=== PATIENT | female | born 1975 | race Caucasian/White ===

== ENCOUNTER 2018-07-23 15:23 | Observation (INO) ==
--- NOTE | 2018-07-23 16:12 | ED ---
HPI General Chief Complaint: Chest Pain Stated Complaint: chest pressure Time Seen by Provider: 07/23/18 15:47 Source: patient Mode of arrival: ambulatory Limitations: no limitations History of Present Illness HPI narrative: Patient is a 42-year-old female with no past medical history, presents to the emergency room with complaints of chest pain. Patient reports that for the past week and a half, she has been having substernal chest pain. Patient reports that the pain feels like a squeezing sensation to her chest. Reports that sometimes it feels like there is something sitting on her chest. Patient reports that symptoms began a week and half ago while at rest, reports that nothing makes symptoms better or worse. Patient reports that symptoms were exacerbated today, reports that she felt diaphoretic in her hands so she figured she should come to the ER for evaluation. Patient also endorses that she does feel short of breath or chest pain. Patient denies any nausea or vomiting with her symptoms, no history of coronary artery disease, hypertension , hyperlipidemia or diabetes. Patient is a non-smoker, she does follow-up with a primary care doctor. Denies any use of drugs. Related Data Home Medications Medication Instructions Recorded Confirmed No Known Home Medications 07/23/18 07/23/18 Allergies Allergy/AdvReac Type Severity Reaction Status Date / Time diatrizoate meglumine Allergy Severe Hives Verified 07/23/18 15:37 gadobenic acid Allergy Severe Hives Verified 07/23/18 15:37 gadodiamide Allergy Severe Hives Verified 07/23/18 15:37 gadoteridol Allergy Severe Hives Verified 07/23/18 15:37 iodixanol Allergy Severe Hives Verified 07/23/18 15:37 iohexol Allergy Severe Hives Verified 07/23/18 15:37 Review of Systems ROS: all other systems reviewed are negative [facility] Medical History Medical History H/O: hysterectomy (Acute) POTS (postural orthostatic tachycardia syndrome) (Acute) Surgical History Surgical History History of cranial surgery (Acute) Hx of breast augmentation (Acute) Social History Social History Substance History: No History of Abuse Second Hand Smoke Exposure: No Smoking Status: Never smoker How Often Do You Have a Drink Containing Alcohol: Never Recent Travel in [facility] within the Last 8 Weeks: No Recent Out of Country Travel within the Last 8 Weeks: No Immunization History Tetanus Immunization: <5 Years Exam Narrative Exam Narrative: GENERAL: Mild distress SKIN: Focused skin assessment warm/dry. HEAD: Atraumatic. Normocephalic. EYES: Pupils equal and round. No scleral icterus. No injection or drainage. ENT: No nasal bleeding or discharge. Mucous membranes pink and moist. NECK: Trachea midline. No JVD. CARDIOVASCULAR: Regular rate and rhythm. No murmur appreciated. RESPIRATORY: No accessory muscle use. Clear to auscultation. Breath sounds equal bilaterally. GASTROINTESTINAL: Abdomen soft, non-tender, nondistended. Hepatic and splenic margins not palpable. MUSCULOSKELETAL: No obvious deformities. No clubbing. No cyanosis. No edema. NEUROLOGICAL: Awake and alert. No obvious cranial nerve deficits. Motor grossly within normal limits. Normal speech. PSYCHIATRIC: Appropriate mood and affect; insight and judgment normal. Course Initial Documented Vital Signs Temperature 98.1 F 07/23/18 15:37 Pulse Rate 111 H 07/23/18 15:37 Respiratory Rate 18 07/23/18 15:37 Blood Pressure 144/85 H 07/23/18 15:37 Pulse Oximetry 100 07/23/18 15:37 Last Documented Vital Signs Temperature 98.1 F 07/23/18 15:37 Pulse Rate 95 H 07/23/18 17:39 Respiratory Rate 16 07/23/18 17:39 Blood Pressure 112/65 07/23/18 17:39 Pulse Oximetry 99 07/23/18 17:39 Medical Decision Making [facility] Narrative Medical decision making narrative: During the course of the patients emergency department visit, the patients history, examination, and differential diagnosis were reviewed with the patient. The patient was placed on a monitor and storage bin tender with oximetry and frequent blood pressure monitoring. The patient had an IV access obtained and blood work sent for analysis. The patient was initially provided aspirin as well as SL nitro. Patient's chest pain is concerning - plan for a cardiac workup The patients laboratory studies were reviewed and remarkable for: CBC: wnl BMP: wnl Trop x 1: less than 0.02 xray of chest: no acute findings given her st seg depressions on her ekg - will obs for serial trops in the center Case reviewed with Dr. Carvalho who accepts pt to service for obs to the cp unit Medical Screen Exam Complete: Yes Emergency Medical Condition: Yes Differential Diagnosis Differential Diagnosis: ACS, Arrythmia, PE, electrolyte abnormality, anxiety reaction Medical Records Medical records reviewed: Yes I reviewed the patient's medical records. Lab Data Lab results reviewed: Yes I reviewed the patient's lab results. Result diagrams: 07/23/18 16:08 07/23/18 16:08 Lab Results 07/23/18 07/23/18 07/23/18 Range/Units 16:08 16:08 16:08 CBC w Diff Auto diff final WBC 5.9 (4.0-11.0) th/mm3 RBC 4.24 (4.00-5.30) mil/mm3 Hgb 13.3 (11.6-15.3) gm/dL Hct 38.9 (35.0-46.0) % MCV 91.8 (80.0-100.0) fL MCH 31.3 (27.0-34.0) pg MCHC 34.1 (32.0-36.0) % RDW 11.7 (11.6-17.2) % Plt Count 244 (150-450) th/mm3 MPV 8.6 (7.0-11.0) fL Neut % (Auto) 54.1 (16.0-70.0) % Lymph % (Auto) 33.3 (9.0-44.0) % Crane % (Auto) 10.9 H (0.0-8.0) % Eos % (Auto) 1.1 (0.0-4.0) % Baso % (Auto) 0.6 (0.0-2.0) % Neut # (Auto) 3.2 (1.8-7.7) th/mm3 Lymph # (Auto) 2.0 (1.0-4.8) th/mm3 Crane # (Auto) 0.6 (0.0-0.9) th/mm3 Eos # (Auto) 0.1 (0.0-0.4) th/mm3 Baso # (Auto) 0.0 (0.0-0.2) th/mm3 WBC Differential . Differential Comment . PT 10.2 (9.8-11.6) sec INR 1.0 Ratio APTT 26.3 (24.3-30.1) sec D-Dimer Quant (PE/DVT) 0.22 (0.00-0.50) mg/L FEU Sodium 141 (136-145) meq/L Potassium 3.8 (3.5-5.1) meq/L Chloride 105 (98-107) meq/L Carbon Dioxide 27.8 (21.0-32.0) meq/L Anion Gap 8 (5-15) meq/L BUN 13 (7-18) mg/dL Creatinine 0.80 (0.50-1.00) mg/dL Estimated GFR 79 L (>89) mL/min Random Glucose 94 (74-106) mg/dL Calcium 8.9 (8.5-10.1) mg/dL Total Bilirubin 0.3 (0.2-1.0) mg/dL AST 16 (15-37) U/L ALT 22 (10-53) U/L Alkaline Phosphatase 61 (45-117) U/L Total Creatine Kinase 46 (26-192) U/L Troponin I Less than 0.02 L (0.02-0.05) ng/mL B-Natriuretic Peptide (0-100) pg/mL Total Protein 7.7 (6.4-8.2) g/dL Albumin 3.9 (3.4-5.0) g/dL Lipase 120 (73-393) U/L 07/23/18 Range/Units 16:08 CBC w Diff WBC (4.0-11.0) th/mm3 RBC (4.00-5.30) mil/mm3 Hgb (11.6-15.3) gm/dL Hct (35.0-46.0) % MCV (80.0-100.0) fL MCH (27.0-34.0) pg MCHC (32.0-36.0) % RDW (11.6-17.2) % Plt Count (150-450) th/mm3 MPV (7.0-11.0) fL Neut % (Auto) (16.0-70.0) % Lymph % (Auto) (9.0-44.0) % Crane % (Auto) (0.0-8.0) % Eos % (Auto) (0.0-4.0) % Baso % (Auto) (0.0-2.0) % Neut # (Auto) (1.8-7.7) th/mm3 Lymph # (Auto) (1.0-4.8) th/mm3 Crane # (Auto) (0.0-0.9) th/mm3 Eos # (Auto) (0.0-0.4) th/mm3 Baso # (Auto) (0.0-0.2) th/mm3 WBC Differential Differential Comment PT (9.8-11.6) sec INR Ratio APTT (24.3-30.1) sec D-Dimer Quant (PE/DVT) (0.00-0.50) mg/L FEU Sodium (136-145) meq/L Potassium (3.5-5.1) meq/L Chloride (98-107) meq/L Carbon Dioxide (21.0-32.0) meq/L Anion Gap (5-15) meq/L BUN (7-18) mg/dL Creatinine (0.50-1.00) mg/dL Estimated GFR (>89) mL/min Random Glucose (74-106) mg/dL Calcium (8.5-10.1) mg/dL Total Bilirubin (0.2-1.0) mg/dL AST (15-37) U/L ALT (10-53) U/L Alkaline Phosphatase (45-117) U/L Total Creatine Kinase (26-192) U/L Troponin I (0.02-0.05) ng/mL B-Natriuretic Peptide 14 (0-100) pg/mL Total Protein (6.4-8.2) g/dL Albumin (3.4-5.0) g/dL Lipase (73-393) U/L Imaging Data Attestation: I personally reviewed and interpreted this imaging study as follows : Radiologist's impression: Chest X-Ray 07/23/18 15:58 CONCLUSION: Negative for acute process ECG Data EKG Prior to Arrival: No Attestation: I personally reviewed and interpreted this ECG as follows: Prior ECG tracings: available for review Interpretation: EKG at 1534: NSR at 92bpm, qt/qtc: 343/393, st seg depression II , III, aVF, V3-V6 there are similar st seg changes from 10/04/12 - they are more pronounced today Discharge Plan Discharge Disposition Patient Disposition: 30 Still Patient Discharge Condition Condition: Stable Discharge Details Diagnosis: Chest pain Physicians Team ED Provider: Marylu Bautista Primary Care Provider: Itz Matute Rxs /Orders / Referrals /Forms Prescriptions: No Action No Known Home Medications RF: 0 Discharge Instructions Patient Printed Instructions: Chest Pain (ED) Status ED Status: With Doctor
[2018-07-23 16:20] LABS: Baso % (Auto) 0.6 % (0.0-2.0); Eos # (Auto) 0.1 th/mm3 (0.0-0.4); Eos % (Auto) 1.1 % (0.0-4.0); Hematocrit 38.9 % (35.0-46.0); Hemoglobin 13.3 gm/dL (11.6-15.3); Lymph % (Auto) 33.3 % (9.0-44.0); Mean Corpuscular HGB Conc 34.1 % (32.0-36.0); Mean Corpuscular Hemoglobin 31.3 pg (27.0-34.0); Mean Corpuscular Volume 91.8 fL (80.0-100.0); Mean Platelet Volume 8.6 fL (7.0-11.0); Mono # (Auto) 0.6 th/mm3 (0.0-0.9); Mono % (Auto) 10.9 % (0.0-8.0); Neut # (Auto) 3.2 th/mm3 (1.8-7.7); Neut % (Auto) 54.1 % (16.0-70.0); Platelet Count 244 th/mm3 (150-450); Red Blood Count 4.24 mil/mm3 (4.00-5.30); Red Cell Distribution Width 11.7 % (11.6-17.2); White Blood Count 5.9 th/mm3 (4.0-11.0)
[2018-07-23 16:36] LABS: Chloride 105 meq/L (98-107); Potassium 3.8 meq/L (3.5-5.1); Sodium 141 meq/L (136-145)
[2018-07-23 16:40] LABS: Albumin 3.9 g/dL (3.4-5.0); Calcium 8.9 mg/dL (8.5-10.1); Lipase 120 U/L (73-393)
[2018-07-23 16:41] LABS: Anion Gap 8 meq/L (5-15); Blood Urea Nitrogen 13 mg/dL (7-18); Carbon Dioxide 27.8 meq/L (21.0-32.0); Glucose,Random 94 mg/dL (74-106)
[2018-07-23 16:43] LABS: Alanine Aminotransferase 22 U/L (10-53); Aspartate Aminotransferase 16 U/L (15-37); Glomerular Filtration Rate 79 mL/min (>89)
[2018-07-23 16:45] LABS: Activated Partial Thrombo Time 26.3 sec (24.3-30.1); Prothrombin Time 10.2 sec (9.8-11.6); Total Protein 7.7 g/dL (6.4-8.2)
[2018-07-23 16:46] LABS: Alkaline Phosphatase 61 U/L (45-117)
[2018-07-23 16:48] LABS: D-Dimer 0.22 mg/L FEU (0.00-0.50)
--- NOTE | 2018-07-23 16:56 | XR ---
EXAM DATE: 07/23/2018 3:58 PM EDT AGE/SEX: 42 years / Female INDICATIONS: Chest pain off and on for over 1 week CLINICAL DATA: This is the patient's initial encounter. Patient reports that signs and symptoms have been present for 1 week and indicates a pain score of 4/10. MEDICAL/SURGICAL HISTORY: None. None. COMPARISON: [facility] [place]ST SING[place] AP, 10/04/2012. . FINDINGS: A single AP view of the chest demonstrates the lungs to be symmetrically aerated without evidence of mass, infiltrate or effusion. The cardiomediastinal contours are unremarkable. Osseous structures a re intact. CONCLUSION: Negative for acute process Electronically signed by: Randy Newman MD 07/23/2018 4:54 PM EDT
[2018-07-23 17:12] LABS: Creatine Kinase 46 U/L (26-192)
[2018-07-23] MEDS ORDERED: Acetaminophen 500 MG Tablet PO PRN (18:31)
[2018-07-23] MEDS ORDERED: Morphine Inj 4 MG/ML Vial IV.PUSH PRN (18:31)
[2018-07-23 20:41] LABS: Creatine Kinase 38 U/L (26-192)
[2018-07-23 22:30] LABS: Creatine Kinase 39 U/L (26-192)
[2018-07-23] MEDS: Sod Chloride 0.9% Inj 1,000 ML IV.CONT SCH (23:16)
--- NOTE | 2018-07-24 07:24 | P.HP ---
History of Present Illness Primary Care Physician: Itz Matute Chief Complaint: Chest pain History of Present Illness: 42-year-old female with no chronic medical illnesses who presented to the hospital for evaluation of chest pain. Patient indicates that she been experiencing what she describes as a chest tightness for the last 1-1/2 weeks. She states that she gets associated shortness of breath whenever she exerts herself. There is one episode of dizziness and nausea. Patient states that the pain remains constant and yesterday it got worse to where she describes it as someone was sitting on her chest. Because of worsening of her discomfort she came to the emergency department for evaluation. Patient denies any radiation to the neck, back, shoulder, arm. She denies any diaphoresis. Patient states that she had a cardiac workup in the past because of arrhythmia and was told that she had postural changes. Patient never had cardiac workup or any ischemia. Patient had unremarkable workup emergency department and recommended evaluation in the hospital. - Diagnosis (1) Chest pain Review of Systems All other systems reviewed negative except as stated in HPI Cardiovascular: Reports chest pain Respiratory: Reports shortness of breath with activity Gastrointestinal: Reports nausea Neurologic: Reports dizziness PMFSH - History History Provided By: Patient - Medical History Medical History: Medical History (Last Reviewed 07/24/18 @ 07:22 by BELKIS Dia) POTS (postural orthostatic tachycardia syndrome) - Surgical History Surgical History: Surgical History (Last Updated 07/24/18 @ 07:21 by BELKIS Dia) H/O: hysterectomy History of cranial surgery Hx of breast augmentation - Family History Family History: Family History (Last Updated 07/24/18 @ 07:22 by BELKIS Dia) Mother History of cancer Sister History of cancer Grandparent History of heart disease Aunt History of heart disease - Tobacco History Second Hand Smoke Exposure: No Tobacco Use In Past 30 Days: No Smoking Status: Never smoker - Alcohol History How Often Do You Have a Drink Containing Alcohol: Never - Substance Use History Substance History: No History of Abuse - Travel History Recent Travel in the [place] Within the Last 8 Weeks: No Recent Travel Out of the Country Within the Last 8 Weeks: No - Immunization History Tetanus Immunization: <5 Years Medications and Allergies Active Medications: Active Medications Acetaminophen (Tylenol) 500 mg PO Q4H PRN PRN Reason: HEADACHE Hydrocodone Bitart/Acetaminophen ([place] 7.5/325) 1 tab PO Q4H PRN PRN Reason: PAIN SCALE 1 TO 7 Aspirin (Aspirin) 325 mg PO DAILY [facility] Sodium Chloride (Ns Inj) 1,000 mls @ 100 mls/hr IV.CONT .Q10H [facility] Last Infusion: 07/24/18 04:31 Dose: 100 mls/hr Morphine Sulfate (Morphine Inj) 2 mg IV.PUSH Q4H PRN PRN Reason: PAIN SCALE 8 TO 10 Nitroglycerin (Nitrostat Sl) 0.4 mg SL Q5M PRN PRN Reason: CHEST PAIN Sodium Chloride (Ns Flush) 2 ml IV.FLUSH BID [facility] Last Admin: 07/23/18 23:17 Dose: 2 ml Sodium Chloride (Ns Flush) 2 ml IV.FLUSH PRN PRN PRN Reason: FLUSH AFTER USING IV ACCESS Allergies Allergy/AdvReac Type Severity Reaction Status Date / Time diatrizoate meglumine Allergy Severe Hives Verified 07/23/18 15:37 gadobenic acid Allergy Severe Hives Verified 07/23/18 15:37 gadodiamide Allergy Severe Hives Verified 07/23/18 15:37 gadoteridol Allergy Severe Hives Verified 07/23/18 15:37 iodixanol Allergy Severe Hives Verified 07/23/18 15:37 iohexol Allergy Severe Hives Verified 07/23/18 15:37 Home Medications Medication Instructions Recorded Confirmed Type No Known Home Medications 07/23/18 07/23/18 History Exam Vital signs: Vital Signs 07/23/18 15:37 07/23/18 15:58 07/23/18 16:19 Temperature 98.1 F Pulse Rate 111 H 93 H 93 H Respiratory Rate 18 16 Blood Pressure 144/85 H 131/78 Pulse Oximetry 100 100 100 07/23/18 16:22 07/23/18 16:29 07/23/18 16:33 Temperature Pulse Rate 88 84 74 Respiratory Rate 16 16 16 Blood Pressure 131/72 118/75 108/68 Pulse Oximetry 99 100 100 07/23/18 16:39 07/23/18 17:39 07/23/18 18:39 Temperature Pulse Rate 80 95 H 79 Respiratory Rate 16 16 18 Blood Pressure 114/63 112/65 133/68 Pulse Oximetry 99 99 100 07/23/18 19:39 07/23/18 20:00 07/23/18 21:20 Temperature 98.2 F Pulse Rate 87 68 70 Respiratory Rate 16 16 18 Blood Pressure 126/69 115/70 108/68 Pulse Oximetry 100 97 98 07/23/18 22:48 07/24/18 00:00 07/24/18 01:35 Temperature 98.2 F Pulse Rate 75 68 Respiratory Rate 16 Blood Pressure 115/70 Pulse Oximetry 97 97 07/24/18 04:00 Temperature 99.3 F Pulse Rate 79 Respiratory Rate 16 Blood Pressure 108/63 Pulse Oximetry 99 Intake & Output 07/23/18 07/24/18 07/24/18 18:59 06:59 18:59 Intake Total 500 / 500 Balance 500 / 500 Weight 62.7 kg 59.2 kg Intake: IV 500 / 500 NS Inj 1,000 ML @ 100 mls/hr IV 500 / 500 .CONT .Q10H [facility] Rx#:[id number] Other: Weight On Admission 63 kg Narrative: GENERAL: Well-developed, well-nourished, in no acute distress. alert and orientated HEENT: Head is normocephalic without any lesions or masses noted. Facial features are symmetric. Eyes: Pupils equal round reactive to light. Extraocular muscles are intact. Conjunctivae were clear. Oropharyngeal: Pharynx without any erythema edema. Tongue is midline without deviation. Buccal mucosa is moist without any masses or lesions NECK: Supple without any masses. Trachea midline no deviation. No JVD, no bruits are appreciated CARDIAC: Regular rhythm, regular rate. S1/S2 are heard. No murmurs gallops or rubs. LUNGS: Clear to auscultation bilaterally. No wheeze, rhonchi or rales. No use of accessory muscles on inspiration or expiration. ABDOMEN: Soft, nontender. Nondistended. Bowel sounds heard in all 4 quadrants. No organomegaly or masses. Negative rebound, negative guarding EXTREMITIES: No edema, pulses are equal bilaterally. No cyanosis or clubbing NEUROLOGY: Mood and affect appear appropriate. Cranial nerves II through XII grossly intact. Muscle strength 5/5 in upper and lower extremities bilaterally. Deep tendon reflexes are 2+ in upper and lower extremities bilaterally. Results - Labs CBC & Chem 7: 07/23/18 16:08 07/23/18 16:08 Labs: Laboratory Results - last 24 hr 07/23/18 07/23/18 07/23/18 16:08 16:08 16:08 CBC w Diff Auto diff final WBC 5.9 RBC 4.24 Hgb 13.3 Hct 38.9 MCV 91.8 MCH 31.3 MCHC 34.1 RDW 11.7 Plt Count 244 MPV 8.6 Neut % (Auto) 54.1 Lymph % (Auto) 33.3 Taney % (Auto) 10.9 H Eos % (Auto) 1.1 Baso % (Auto) 0.6 Neut # (Auto) 3.2 Lymph # (Auto) 2.0 Taney # (Auto) 0.6 Eos # (Auto) 0.1 Baso # (Auto) 0.0 WBC Differential . Differential Comment . PT 10.2 INR 1.0 APTT 26.3 D-Dimer Quant (PE/DVT) 0.22 Sodium 141 Potassium 3.8 Chloride 105 Carbon Dioxide 27.8 Anion Gap 8 BUN 13 Creatinine 0.80 Estimated GFR 79 L Random Glucose 94 Calcium 8.9 Total Bilirubin 0.3 AST 16 ALT 22 Alkaline Phosphatase 61 Total Creatine Kinase 46 Troponin I Less than 0.02 L B-Natriuretic Peptide Total Protein 7.7 Albumin 3.9 Lipase 120 07/23/18 07/23/18 07/23/18 16:08 19:52 21:51 CBC w Diff WBC RBC Hgb Hct MCV MCH MCHC RDW Plt Count MPV Neut % (Auto) Lymph % (Auto) Taney % (Auto) Eos % (Auto) Baso % (Auto) Neut # (Auto) Lymph # (Auto) Taney # (Auto) Eos # (Auto) Baso # (Auto) WBC Differential Differential Comment PT INR APTT D-Dimer Quant (PE/DVT) Sodium Potassium Chloride Carbon Dioxide Anion Gap BUN Creatinine Estimated GFR Random Glucose Calcium Total Bilirubin AST ALT Alkaline Phosphatase Total Creatine Kinase 38 39 Troponin I Less than 0.02 L Less than 0.02 L B-Natriuretic Peptide 14 Total Protein Albumin Lipase - Imaging Impressions Chest X-Ray 07/23/18 15:58 CONCLUSION: Negative for acute process Caprini VTE Risk Assessment Caprini VTE Risk Assessment: No/Low Risk (score <= 1) Caprini Risk Assessment Model: Point Value = 1 Point Value = 2 Point Value = 3 Point Value = 5 Age 41-60 Minor surgery BMI > 25 kg/m2 Swollen legs Varicose veins or History of unexplained or recurrent spontaneous Oral contraceptives or hormone replacement Sepsis (< 1 month) Serious lung disease, including pneumonia (< 1 month) Abnormal pulmonary function Acute myocardial infarction Congestive heart failure (< 1 month) History of inflammatory bowel disease Medical patient at bed rest Age 61-74 Arthroscopic surgery Major open surgery (> 45 min) Laparoscopic surgery (> 45 min) Malignancy Confined to bed (> 72 hours) Immobilizing plaster cast Central venous access Age >= 75 History of VTE Family history of VTE Factor V Leiden Prothrombin [id number] Lupus anticoagulant Anticardiolipin antibodies Elevated serum homocysteine Heparin-induced thrombocytopenia Other congenital or acquired thrombophilia Stroke (< 1 month) Elective arthroplasty Hip, pelvis, or leg fracture Acute spinal cord injury (< 1 month) Prophylaxis Regimen: Total Risk Factor Score Risk Level Prophylaxis Regimen 0-1 Low Early ambulation 2 Moderate Order ONE of the following: *Sequential Compression Device (SCD) *Heparin 5000 units SQ BID 3-4 Higher Order ONE of the following medications: *Heparin 5000 units SQ TID *Enoxaparin/Lovenox 40 mg SQ daily (WT < 150 kg, CrCl > 30 mL/min) *Enoxaparin/Lovenox 30 mg SQ daily (WT < 150 kg, CrCl > 10-29 mL/min) *Enoxaparin/Lovenox 30 mg SQ BID (WT < 150 kg, CrCl > 30 mL/min) AND/OR *Sequential Compression Device (SCD) 5 or more Highest Order ONE of the following medications: *Heparin 5000 units SQ TID (Preferred with Epidurals) *Enoxaparin/Lovenox 40 mg SQ daily (WT < 150 kg, CrCl > 30 mL/min) *Enoxaparin/Lovenox 30 mg SQ daily (WT < 150 kg, CrCl > 10-29 mL/min) *Enoxaparin/Lovenox 30 mg SQ BID (WT < 150 kg, CrCl > 30 mL/min) AND *Sequential Compression Device (SCD) Assessment and Plan - Assessment (1) Chest pain Code(s): R07.9 - Chest pain, unspecified Status: Acute - Plan Chest pain -Patient with very minimal risk factors include family history of heart disease -Patient has been ruled out for acute coronary event with serial cardiac enzymes that are negative -Serial EKG reviewed by myself and shows sinus rhythm without any changes -Exercise stress test was performed and indicated no signs of ischemia -Continue aspirin, nitroglycerin, [place], morphine for pain control -Continue monitor telemetry DVT prevention -Low risk, early ambulation Discharge Planning: Discharge home in stable condition Activity: Ad linda. Diet: Regular diet Medication per medication reconciliation Follow-up with primary medical doctor in 1 week
[2018-07-24] MEDS: Sod Chloride 0.9% Inj 1,000 ML IV.CONT SCH (07:42)
[2018-07-24] MEDS ORDERED: Aspirin 325 MG Tablet PO SCH (09:00)
[2018-07-24 09:08] VITALS: BP 109/65; PULSE 72; RESP 18; TEMP 97.8; O2SAT 100
--- NOTE | 2018-07-24 10:36 | TR ---
Date Performed: 07/24/2018 Time Performed: 08:52:00 DOCTOR: Price Brandon DRUG LIST: CLINICAL HISTORY: CHEST PAIN REASON FOR TEST: Chest pain REASON FOR ENDING: Completed Protocol OBSERVATION: Chest Pain: None Arrhythmia: None CONCLUSION: Patient tolerated ORIANA protocol with Total Exercise Time=6:30 Maximum XO=728 % Max HR Achieved=92.0% Maximum VR=900/72, Patien twas asymptomatic during procedure. Testing stopped eriperi porter to goals acheived. During peak exercise, slow upsloping ST depression in inferior leads, HR and BP appropriate response to exercise, recovery period, HR and BP returned to baseline COMMENTS: upsloping ST segments only,Conclusion: Normal treadmill exercise. No evidence of isch emia.
--- NOTE | 2018-07-24 13:47 | ECG ---
Date Performed: 07/23/2018 Time Performed: 21:51:01 PTAGE: 42 years EKG: Sinus rhythm NORMAL ECG PREVIOUS TRACING : 07/23/2018 18.39 Since the previous tracing, no significant change noted DOCTOR: Chris Vallejo Interpretating Date/Time 07/24/2018 13:46:17
--- NOTE | 2018-07-24 15:24 | ECG ---
Date Performed: 07/23/2018 Time Performed: 15:34:40 PTAGE: 42 years EKG: Sinus rhythm MODERATE ST DEPRESSION ABNORMAL ECG PREVIOUS TRACING : 10/04/2012 10.27 Compared to previous tracing, rate has slowed somewhat and ST depression is more pronounced. Clinical correlation is recommended DOCTOR: Chris Vallejo Interpretating Date/Time 07/24/2018 15:23:13
--- NOTE | 2018-07-24 15:25 | ECG ---
Date Performed: 07/23/2018 Time Performed: 18:39:44 PTAGE: 42 years EKG: Sinus rhythm NORMAL ECG PREVIOUS TRACING : 07/23/2018 15.34 Compared to previous tracing, ST segment has improved. DOCTOR: Chris Vallejo Interpretating Date/Time 07/24/2018 15:24:32
== END 2018-07-24 11:02 | disposition home or self-care (01) ==
LOC: PHEDA 15:23 → PHED 15:23 → PH3 21:20
PROVIDERS: ADMIT Hospitalist; ATTEND Hospitalist